=== PATIENT | male | born 1980 | race Caucasian/White ===

== ENCOUNTER 2018-08-18 09:19 | Observation (INO) | payer SELFPAY ==
[2018-08-18 09:25] VITALS: BP 131/94; PULSE 76; RESP 20; TEMP 36.7; O2SAT 99
[2018-08-18 09:51] LABS: Abs Immature Grans 0.04 k/cumm (0.0-0.09); Absolute Basophil Count 0.02 k/cumm (0.0-0.2); Absolute Eosinophil Count 0.08 k/cumm (0.0-0.7); Absolute Monocyte Count 0.88 k/cumm (0.11-0.7); Absolute Neutrophil Count 8.11 k/cumm (1.2-6.7); Basophils % 0.2; Eosinophils % 0.7; HCT 49.6 % (40.0-50.0); Immature Grans % 0.4; Lymphocytes % 17.2; Mean Corp. HGB Concentration 34.3 g/dL (32.0-36.0); Mean Corpuscular Hemoglobin 31.9 pg (27.0-33.0); Mean Corpuscular Volume 93.1 fL (80-95); Mean Platelet Volume 10.2 fL (8.0-11.0); Neutrophils % 73.5; Platelet Count 259 x1000/uL (130-400); RBC 5.33 m/cumm (4.50-6.00); RBC Distribution Width 13.4 % (11.8-14.1); White Blood Cell Count 11.04 k/cumm (4.4-10.8)
--- NOTE | 2018-08-18 09:59 | ED.GENADUL_ITS ---
Discharge Plan Disposition Patient Disposition: [facility] INPATIENT Condition: Stable Discharge Details Chief Complaint: Abd Prob Clinical Impression: Small bowel obstruction, History of alcohol abuse Admit Date/Time: 08/18/18 11:10 Admit Provider: Deborah Hunter Attending Provider: Deborah Hunter Primary Care Provider: Alhaji Raymundo ED Provider: Jodee Ling Medical Decision Making 38-year-old male with a history of GERD and Hirschsprung's disease with multiple abdominal surgeries as an , and abdominal surgery for appendicitis in 2013 and was determined that his appendix had been removed as an who presents with abdominal pain and vomiting since yesterday morning. Last bowel movement yesterday morning. Has not been passing gas since then. Denies fever or urinary symptoms. He admits to some relief of pain with urinating. Patient is a daily alcohol drinker approximately 6 beers daily since his 20s. Vitals within normal limits. Patient appears nontoxic. He has diffuse abdominal tenderness, worse in the upper abdomen. Hypoactive bowel sounds. Positive guarding. Differential diagnosis includes acute pancreatitis, acute cholecystitis, small bowel obstruction. Will place an IV, bolus IV fluids, labs, urinalysis and CT abdomen and pelvis. 1045 --labs and imaging reviewed. White blood cell count 11. Troponin negative. Lipase within normal limits. CT abdomen and pelvis notes dilated loops of small bowel which may be obstructing. Gallbladder and pancreas within normal limits. There is bladder wall thickening. 1100 --results discussed with surgery. Patient has a significantly tender exam, hypoactive bowel sounds, and not passing gas since yesterday. Will admit patient for serial abdominal exams. Would like NG tube. Patient is agreeable with plan. Patient is a daily alcohol drinker. Will need to be placed on CIWA protocol on the floor. Medical Records Medical records reviewed: Yes I reviewed the patient's medical records. Lab Data Lab results reviewed: Yes I reviewed the patient's lab results. Laboratory Tests Range/Units 08/18/18 08/18/18 09:35 09:35 WBC (4.4-10.8) k/cumm 11.04 H RBC (4.50-6.00) m/cumm 5.33 Hgb (13.5-17.5) g/dL 17.0 Hct (40.0-50.0) % 49.6 MCV (80-95) fL 93.1 MCH (27.0-33.0) pg 31.9 MCHC (32.0-36.0) g/dL 34.3 RDW (11.8-14.1) % 13.4 Plt Count (130-400) x1000/uL 259 MPV (8.0-11.0) fL 10.2 Immature Gran % 0.4 Neutrophils % 73.5 Lymphocytes % 17.2 Monocytes % 8.0 Eosinophils % 0.7 Basophils % 0.2 Absolute Neutrophils (1.2-6.7) k/cumm 8.11 H Absolute Lymphocytes (1.2-3.4) k/cumm 1.90 Absolute Monocytes (0.11-0.7) k/cumm 0.88 H Absolute Eosinophils (0.0-0.7) k/cumm 0.08 Absolute Basophils (0.0-0.2) k/cumm 0.02 Sodium (136-145) mmol/L 140 Potassium (3.5-5.1) mmol/L 3.9 Chloride (98-107) mmol/L 99 Carbon Dioxide (21.0-32.0) mmol/L 30.2 Anion Gap (3-11) mmol/L 10.8 BUN (7-18) mg/dL 13 Creatinine (0.70-1.30) mg/dL 0.98 Estimated GFR/1.73 m2 (mL/min/1.73m2) >= 60.00 Glucose (70-100) mg/dL 115 H Calcium (8.5-10.1) mg/dL 9.6 Magnesium (1.8-2.4) mg/dL 2.3 Total Bilirubin (0.2-1.0) mg/dL 0.4 Conjugated Bilirubin (0.00-0.20) mg/dL 0.11 AST (15-37) U/L 17 ALT (12-78) U/L 40 Alkaline Phosphatase (46-116) U/L 76 Troponin I (0.00-0.06) ng/mL < 0.02 Total Protein (6.4-8.2) g/dL 8.4 H Albumin (3.4-5.0) g/dL 4.2 Lipase (73-393) U/L 96 HPI General Mode of arrival: ambulatory . Date/Time Provider Initiated Documentation: 08/18/18 09:58 . Limitations to Documentation: no limitations . Information obtained by: patient . HPI Narrative: Patient is a 38-year-old male w/ a h/o multiple abdominal surgeries as an due to Hirschsprung's disease as well as abdominal surgery for a diagnosis of appendicitis in 2013 and was found that his appendix had been removed as an infant who presents with abdomi nal pain and vomiting since yesterday. Patient describes his abdominal pain as intermittent, sharp, worse in the upper abdomen, but also radiates from the lower abdomen up to his upper abdomen. He denies aggravating factors. He admits to some relief of pain with urination. He denies any dysuria, hematuria or frequency. He states he vomited multiple times last night between 7 PM and 4 AM. States it was clear and then bile. He denies any hematemesis. Patient states his last bowel movement was yesterday morning. He states since then he has been unable to pass gas and no further bowel movements. He denies any melena or hematochezia. He denies fever, recent travel, recent surgeries, recent antibiotics or sick contacts. Related Data Home Medications Medication Instructions Recorded Confirmed omeprazole 20 mg PO DAILY 08/18/18 08/18/18 Allergies Allergy/AdvReac Type Severity Reaction Status Date / Time Penicillins Allergy Hives Unverified 08/18/18 09:29 General Stated Complaint: Abd Prob JAMIR: 3 Review of Systems Review of Systems All systems reviewed & are unremarkable except as noted in HPI and below Constitutional Reports as per HPI, Denies chills and Denies fever(s) Eyes Denies blurry vision ENT Denies dizziness, Denies sore throat and Denies throat swelling Cardiovascular Denies chest pain and Denies dyspnea Respiratory Denies cough and Denies dyspnea Gastrointestinal Reports abdominal pain, Denies diarrhea and Reports vomiting Genitourinary Denies hematuria and Denies dysuria Musculoskeletal Denies back pain and Denies numbness Integumentary/Breasts Denies lesions and Denies rash Neurologic Denies dizziness, Denies focal weakness and Denies numbness Allergic/Immunologic Denies throat swelling [facility] Medical History Hirschsprung's disease (Acute) GERD (gastroesophageal reflux disease) (Chronic) Surgical History H/O exploratory laparotomy (Acute) History of bowel resection (Acute) History of appendectomy (Chronic) Social History Smoking/Tobacco Use Status: Current every day Alcohol Intake: current Alcohol Intake frequency: 3 or more drinks per day Drug use: Occasionally Substance use type: marijuana Do you feel safe at home: Yes Do you feel safe in your relationship?: Yes Exam Const General: cooperative, healthy appearing and no acute distress HENMT Head: normal to inspection Face and sinus: normal facial exam Eyes General: appearance normal, both eyes and all related structures Pupils: PERRL EOM: EOM intact bilaterally Neck Neck: normal visual inspection and No submandibular swelling Lymphatic: no lymphadenopathy noted Chest Chest: normal inspection of the chest and no tenderness Resp Effort & Inspection: normal respiratory effort and able to speak in complete sentences Auscultation: clear to auscultation bilaterally Cardio Rate: regular rate Rhythm: regular rhythm GI Inspection: normal to inspection Palpation: soft, not firm, guarding in the LUQ and in the RUQ, not rigid and tender (diffuse, worse in upper abdomen) Auscultation: hypoactive bowel sounds Male General Exam: Yes normal external exam Skin General skin exam: no rashes or lesions noted Neuro General: alert, awake and oriented x3 Cognition: normal cognition Speech: speech normal Motor: muscle tone normal throughout Sensory Exam: no sensory deficits noted Extrem General: normal to inspection, full ROM and no edema Psych Appearance: grossly normal Mental Status: mental status grossly normal Speech and Movement: speech and movement normal Affect: normal affect Course Vital Signs Temperature 98.1 F 08/18/18 09:25 Pulse 76 08/18/18 09:25 Respiratory Rate 20 08/18/18 09:25 Blood Pressure 131/94 H 08/18/18 09:25 Pulse Oximetry 99 08/18/18 09:25 Temperature 98.1 F 08/18/18 09:25 Temperature Source Temporal Artery Scan 08/18/18 09:25 Pulse 76 08/18/18 09:25 Respiratory Rate 20 08/18/18 09:25 Respiratory Effort Non-Labored 08/18/18 09:25 Blood Pressure 131/94 H 08/18/18 09:25 Blood Pressure Position Sitting 08/18/18 09:25 Pulse Oximetry 99 08/18/18 09:25 Oxygen Delivery Method Room Air 08/18/18 09:25 Oxygen Flow Rate 0 08/18/18 09:25 Pain Level 8 08/18/18 09:25 Lab/Test Results Lab/Test Results: Laboratory Tests Range/Units 08/18/18 09:35 WBC (4.4-10.8) k/cumm 11.04 H RBC (4.50-6.00) m/cumm 5.33 Hgb (13.5-17.5) g/dL 17.0 Hct (40.0-50.0) % 49.6 MCV (80-95) fL 93.1 MCH (27.0-33.0) pg 31.9 MCHC (32.0-36.0) g/dL 34.3 RDW (11.8-14.1) % 13.4 Plt Count (130-400) x1000/uL 259 MPV (8.0-11.0) fL 10.2 Immature Gran % 0.4 Neutrophils % 73.5 Lymphocytes % 17.2 Monocytes % 8.0 Eosinophils % 0.7 Basophils % 0.2 Absolute Neutrophils (1.2-6.7) k/cumm 8.11 H Absolute Lymphocytes (1.2-3.4) k/cumm 1.90 Absolute Monocytes (0.11-0.7) k/cumm 0.88 H Absolute Eosinophils (0.0-0.7) k/cumm 0.08 Absolute Basophils (0.0-0.2) k/cumm 0.02
--- NOTE | 2018-08-18 10:03 | DI.CT_ITS ---
SYMPTOMS/DIAGNOSIS: UPPER ABD PAIN, H/O ETOH, ? PANCREATITIS VS CHOLECYSTITIS VS SBO CT SCAN OF THE ABDOMEN AND PELVIS: CT scan of the abdomen and pelvis was performed following the uneventful administration of intravenous contrast material. Mild dependent atelectatic changes are seen in the lung bases. The liver is normal in size. No hepatic mass is seen. The portal, superior mesenteric and splenic veins are patent. The gallbladder is negative. There is no biliary ductal dilatation. The pancreas and peripancreatic soft tissues are unremarkable as are the spleen and adrenal glands. The kidneys show normal and symmetric enhancement. No evidence of a solid renal mass or obstruction. There is mild apparent diffuse thickening of the wall of the urinary bladder. This may be due to underdistention. Cystitis can not be excluded. The reproductive organs are unremarkable. The abdominal aorta is of normal caliber with mild atherosclerosis. No significant abdominal or pelvic adenopathy or pneumoperitoneum is seen. There is a trace amount of fluid in the pelvis and right colon. This is nonspecific. No focal fluid collection is seen to suggest an abscess. Mildly dilated loops of small bowel are seen in the central abdomen with air fluid levels. This may represent an ileus or obstruction. The distal small bowel is of normal caliber. The colon is unremarkable. The appendix is not visualized but no right lower quadrant inflammatory changes are seen to suggest an acute appendicitis. Degenerative changes are seen in the spine particularly at the L 5 - S 1 disc space. IMPRESSION: 1. Mildly dilated loops of small bowel in the central abdomen. This may represent an ileus vs a small bowel obstruction. 2. Mild apparent diffuse thickening of the wall of the urinary bladder. This may be due to underdistention vs cystitis. 3. Normal CT appearance of the pancreas and gallbladder. No biliary ductal dilatation. 4. Trace amount of free fluid in the right pelvis. This is nonspecific. The findings were discussed with the emergency department on the date of the examination.
[2018-08-18 10:08] LABS: ALT 40 U/L (12-78); AST 17 U/L (15-37); Albumin 4.2 g/dL (3.4-5.0); Alkaline Phosphatase 76 U/L (46-116); Anion Gap 10.8 mmol/L (3-11); BUN 13 mg/dL (7-18); Bilirubin, Direct 0.11 mg/dL (0.00-0.20); Bilirubin, Total 0.4 mg/dL (0.2-1.0); CO2 30.2 mmol/L (21.0-32.0); CREATININE 0.98 mg/dL (0.70-1.30); Calcium 9.6 mg/dL (8.5-10.1); Chloride 99 mmol/L (98-107); Glucose 115 mg/dL (70-100); Lipase 96 U/L (73-393); Magnesium 2.3 mg/dL (1.8-2.4); Potassium 3.9 mmol/L (3.5-5.1); Sodium 140 mmol/L (136-145); Total Protein 8.4 g/dL (6.4-8.2)
[2018-08-18 10:16] LABS: Troponin I < 0.02 ng/mL (0.00-0.06)
[2018-08-18] MEDS: FAMOTIDINE 20 MG/50 ML BAG 200 MG IVPB (10:25)
[2018-08-18] MEDS: Normal Saline 1,000 ML 1000 ML IV ×2 (10:25→11:36)
[2018-08-18] MEDS: Omnipaque 350 MG/ML 100 ML BTL IJ (10:30)
[2018-08-18] MEDS: MORPHine 10 MG/ML VIAL 4 MG IVP (11:36)
--- NOTE | 2018-08-18 11:37 | NUR.NOTE ---
Nursing Note: NG placed attempt [address] Cabello. Patient has an hypersensitive gag reflex and did not tolerate the tube, required hurricane spray to back of throat and viscous lidocaine up nares. Pt tolerating it at this time.
--- NOTE | 2018-08-18 12:00 | PDOC.ERCMPRO ---
Care Management Progress Note - Kelvin is being admitted by Dr. Hunter for Small Bowel Obstruction. This CM met with Kelvin and his Analia. They live in [place] with their two children. Both work full-time. Kelvin works for [employer]. Kelvin does not have any advance directives and does not have any health insurance. His PCP is Dr. Raymundo. Kelvin admits to drinking six beers every day. At this time, no indication for services or DME at discharge. Care Management to continue to assess throughout hospital stay.
[2018-08-18 12:05] VITALS: BP 131/94; PULSE 76; RESP 20; TEMP 36.8; O2SAT 99
--- NOTE | 2018-08-18 12:06 | CMPROGNOTE_ITS ---
Care Management Progress Note - Kelvin is being admitted by Dr. Hunter for Small Bowel Obstruction. This CM met with Kelvin and his Analia. They live in [place] with their two children. Both work full-time. Kelvin works for [employer]. Kelvin does not have any advance directives and does not have any health insurance. His PCP is Dr. Raymundo. Kelvin admits to drinking six beers every day. At this time, no indication for services or DME at discharge. Care Management to continue to assess throughout hospital stay.
[2018-08-18 12:26] VITALS: BP 150/94; PULSE 70; RESP 18; TEMP 37.1; O2SAT 97
[2018-08-18 12:54] LABS: Bilirubin Negative (Negative); Blood Negative (Negative); Clarity Clear; Glucose Negative (Negative); Ketones Negative (Negative); Leukocyte Esterase Negative (Negative); Nitrite Negative (Negative); Urobilinogen 0.2 EU/dL (Up TO 0.2)
[2018-08-18 13:07] LABS: Bacteria Rare HPF (Negative); C & S Indicated? No; Casts Negative LPF (Negative); Crystals Negative HPF (Negative); Epithelial Cells Rare HPF (Negative); Mucus Trace (Negative); RBC 0-2 (0-2); WBC 0-2 HPF (0-5)
--- NOTE | 2018-08-18 14:20 | HPE_ITS ---
Date of service: 08/18/18 Time of Service: 14:20 Assessment and Plan (1) Bowel obstruction: Current visit: Yes Status: Acute 38 y/o male with nausea, vomiting, and abdominal pain. He is not passing flatus. Last BM [address] shows mildly dilated small bowel loops. Differential diagnosis would include resolving gastroenteritis or ileus. Will manage conservatively with bowel rest, IVF, NG decompression, and follow-up AXR in the am. OK for ice chips. Further recommendations pending clinical course. CIWA assessment ordered for h/o daily ETOH use. All questions answered. Patient and agreeable with plans. History of Present Illness Chief Complaint: Abdominal pain Narrative: 38 y/o male seen with at bedside. Discussed patient with Dr. Ling (ED) earlier this morning. Patient states that he developed mid-abdominal/epigastric pain yesterday morning. The pain was intermittent and worsened later in the day. He also subsequently developed nausea and vomiting. He had eaten lunch and vomited his lunch several hours later. Last emesis was around 0400 this morning. He last had a BM yesterday morning which was 2 small, formed stools full of sunflower seeds. He states that normally his stool is looser and he has 2-3 BMs/day. He is not passing flatus. He denies fevers or chills. He denies melena, hematochezia, dysuria, or hematuria. He had a stomach bug last week with diarrhea up to 20x/day which appeared to have resolved. He notes a similar episode of pain in 2012. He was taken to surgery for an appendectomy but it was found that his appendix had already been removed. His describes what sounds like a lysis of adhesions performed at that time. He has a h/o Hirschsprung's disease and had bowel surgery at 6 months of age. He had a blockage which required return to surgery at age 3. He denies any other abdominal surgeries besdies those listed above. CT abd/pelvis reviewed. Report noted. Findings of mildly dilated small bowel consistent with ileus vs. SBO. Labs noted. Review of Systems Constitutional Reports system reviewed and no additional complaints, except as docu, Denies chills and Denies fever(s) Gastrointestinal Reports abdominal pain, Denies hematochezia, Reports heartburn, Reports nausea, Reports vomiting and Denies hematemesis Genitourinary Denies hematuria, Denies difficulty urinating and Denies dysuria PFSH Medical History Hirschsprung's disease (Acute) GERD (gastroesophageal reflux disease) (Chronic) Surgical History H/O exploratory laparotomy (Acute) History of bowel resection (Acute) History of appendectomy (Chronic) Social History Smoking/Tobacco Use Status: Current every day Tobacco Type: cigars Alcohol Intake: current Alcohol Intake frequency: 3 or more drinks per day Drug use: Occasionally Substance use type: marijuana Do you feel safe at home: Yes Do you feel safe in your relationship?: Yes Meds Home Medications Medication Instructions Recorded Confirmed Type omeprazole 20 mg PO DAILY 08/18/18 08/18/18 History Allergies Allergy/AdvReac Type Severity Reaction Status Date / Time Penicillins Allergy Hives Unverified 08/18/18 09:29 Exam Const General: cooperative and no acute distress Nutritional Appearance: average body habitus and well nourished Orientation: alert and oriented x3 HENMT Head: normocephalic and atraumatic General nose exam: other (NG in right nares - clear, mucous drainage) Eyes Sclera: sclerae normal Neck Neck: no JVD Resp Effort & Inspection: normal respiratory effort and able to speak in complete sentences Cardio Jugular venous pressure: no JVD Rate: regular rate Rhythm: regular rhythm GI Inspection: non-distended and scar (well-healed, transverse lower abdomen) Palpation: soft, not firm, no guarding, not rigid and tender (mildly tender mid-abdomen) Auscultation: hypoactive bowel sounds Skin General skin exam: no rashes or lesions noted and no jaundice Neuro General: alert and oriented x3 Speech: speech normal Results Imaging Abdomen CT scan report/results: report reviewed and image reviewed CT scan - pelvis: report reviewed and image reviewed Imaging Studies: Patient Name: Davide WHITAKER #: [id number]: ER Ordering Provider: Jodee Ling DOAccount #: [id number]: REG ER Primary Care Provider: Alhaji Raymundo Date of Exam: 08/18/18Sex: Reba : 1980Age: 38 Exam(s) a CT:CT abdomen & pelvis w SYMPTOMS/DIAGNOSIS: UPPER ABD PAIN, H/O ETOH, ? PANCREATITIS VS CHOLECYSTITIS VS SBO CT SCAN OF THE ABDOMEN AND PELVIS: CT scan of the abdomen and pelvis was performed following the uneventful administration of intravenous contrast material. Mild dependent atelectatic changes are seen in the lung bases. The liver is normal in size. No hepatic mass is seen. The portal, superior mesenteric and splenic veins are patent. The gallbladder is negative. There is no biliary ductal dilatation. The pancreas and peripancreatic soft tissues are unremarkable as are the spleen and adrenal glands. The kidneys show normal and symmetric enhancement. No evidence of a solid renal mass or obstruction. There is mild apparent diffuse thickening of the wall of the urinary bladder. This may be due to underdistention. Cystitis can not be excluded. The reproductive organs are unremarkable. The abdominal aorta is of normal caliber with mild atherosclerosis. No significant abdominal or pelvic adenopathy or pneumoperitoneum is seen. There is a trace amount of fluid in the pelvis and right colon. This is nonspecific. No focal fluid collection is seen to suggest an abscess. Mildly dilated loops of small bowel are seen in the central abdomen with air fluid levels. This may represent an ileus or obstruction. The distal small bowel is of normal caliber. The colon is unremarkable. The appendix is not visualized but no right lower quadrant inflammatory changes are seen to suggest an acute appendicitis. Degenerative changes are seen in the spine particularly at the L 5 - S 1 disc space. IMPRESSION: 1. Mildly dilated loops of small bowel in the central abdomen. This may represent an ileus vs a small bowel obstruction. 2. Mild apparent diffuse thickening of the wall of the urinary bladder. This may be due to underdistention vs cystitis. 3. Normal CT appearance of the pancreas and gallbladder. No biliary ductal dilatation. 4. Trace amount of free fluid in the right pelvis. This is nonspecific. The findings were discussed with the emergency department on the date of the examination. [id number]: Total DLP = 0.00 mGy-cm Ordered By: Jodee Ling DO CC: Dictated By: Alhaji Ferreira M.D. 08/18/18 1048 Transcribed By: Jennifer Mccormack 08/18/18 1119 This is privileged, confidential information intended only for the provider na med. Any use or distribution by any person other than this provider is strictly prohibited. If you receive this report in error, please notify us immediately at [phone] and return the original report to us at the address above. Thank- you. Labs : 08/18/18 09:35 08/18/18 09:35 Laboratory Results - last 24 hr 08/18/18 08/18/18 08/18/18 09:35 09:35 12:40 WBC 11.04 H RBC 5.33 Hgb 17.0 Hct 49.6 MCV 93.1 MCH 31.9 MCHC 34.3 RDW 13.4 Plt Count 259 MPV 10.2 Immature Gran % 0.4 Neutrophils % 73.5 Lymphocytes % 17.2 Monocytes % 8.0 Eosinophils % 0.7 Basophils % 0.2 Absolute Neutrophils 8.11 H Absolute Lymphocytes 1.90 Absolute Monocytes 0.88 H Absolute Eosinophils 0.08 Absolute Basophils 0.02 Sodium 140 Potassium 3.9 Chloride 99 Carbon Dioxide 30.2 Anion Gap 10.8 BUN 13 Creatinine 0.98 Estimated GFR/1.73 m2 >= 60.00 Glucose 115 H Calcium 9.6 Magnesium 2.3 Total Bilirubin 0.4 Conjugated Bilirubin 0.11 AST 17 ALT 40 Alkaline Phosphatase 76 Troponin I < 0.02 Total Protein 8.4 H Albumin 4.2 Lipase 96 Urine Color Yellow Urine Clarity Clear Urine pH 7.0 Ur Specific [place] 1.010 Urine Protein 30 H Urine Ketones Negative Urine Blood Negative Urine Nitrite Negative Urine Bilirubin Negative Urine Urobilinogen 0.2 Ur Leukocyte Esterase Negative Urine RBC 0-2 Urine WBC 0-2 Ur Epithelial Cells Rare Urine Crystals Negative Urine Bacteria Rare Urine Casts Negative Urine Mucus Trace Urine Other Ur Culture Indicated? No Urine Glucose Negative Last Vital Signs Temp 37.1 C 08/18/18 12:26 Pulse 70 08/18/18 12:26 Resp 18 08/18/18 12:26 BP 150/94 H 08/18/18 12:26 Pulse Ox 97 08/18/18 12:26
[2018-08-18 14:45] VITALS: BP 130/74; PULSE 62; RESP 19; TEMP 37.1; O2SAT 96
[2018-08-18] MEDS: Normal Saline 1,000 ML 125 ML IV (16:11)
[2018-08-18] MEDS: Ketorolac 30 MG/ML VIAL IVP (19:49)
[2018-08-18] MEDS: Normal Saline Flush 10 ML SYR IVP (19:50)
[2018-08-18 23:01] VITALS: BP 120/75; PULSE 70; RESP 18; TEMP 37.2; O2SAT 94
[2018-08-19] VITALS: BP 115/76; PULSE 62; RESP 16; TEMP 37.4; O2SAT 96
[2018-08-19] MEDS: Normal Saline 1,000 ML 125 ML IV ×3 (00:19→16:00)
[2018-08-19 03:59] VITALS: BP 121/74; PULSE 87; RESP 16; TEMP 37.1; O2SAT 98
--- NOTE | 2018-08-19 08:03 | PDOC.CMIN ---
- If Service Date Differs Date of service: 08/19/18 Time of Service: 08:03 Care Management Initial Assess REASON FOR HOSPITALIZATION:: SBO PAST MEDICAL HISTORY/PAST SURGICAL HISTORY:: Hirschsprung's disease (Acute). GERD (gastroesophageal reflux disease) (Chronic. H/O exploratory laparotomy (Acute). History of bowel resection (Acute). History of appendectomy (Chronic) PREVIOUS FUNCTIONAL STATUS/SOCIAL/FAMILY SUPPORTS:: Kelvin resides with his Analia and two children in [place]. He works for [employer]. He is independent at baseline, drives, and manages ADL's CURRENT FUNCTIONAL STATUS:: Currently Kelvin is sitting up in bed, his is in the room with him this morning. ADVANCE DIRECTIVES:: None on file Has patient been provided with information about the portal?: Yes Did the patient sign up for the portal?: No CODE STATUS:: Full Code INSURANCE COVERAGE / FINANCIAL ISSUES:: Self Pay CURRENT HOME/COMMUNITY SERVICES/EQUIPMENT:: Currently Kelvin has no services or medical equipment in the community. PRIMARY CARE PHYSICIAN:: Alhaji Raymundo POTENTIAL DISCHARGE NEEDS:: F/U appointment with Dr. Hunter PATIENT/FAMILY EDUCATION NEEDS:: Review DC instructions, any limitations, and ongoing DC planning discussion. discuss 'Ask Me Three' ANTICIPATED BARRIERS TO DISCHARGE:: None identified at this time. TRANSPORTATION:: Via private vehicle with PLAN:: Kelvin will return home with no anticipated services once medically cleared. He will f/U with Dr. Hunter and plan of care as prescribed. family to transport.
--- NOTE | 2018-08-19 08:10 | INITIAL_ITS ---
- If Service Date Differs Date of service: 08/19/18 Time of Service: 08:03 Care Management Initial Assess REASON FOR HOSPITALIZATION:: SBO PAST MEDICAL HISTORY/PAST SURGICAL HISTORY:: Hirschsprung's disease (Acute). GERD (gastroesophageal reflux disease) (Chronic. H/O exploratory laparotomy (Acute). History of bowel resection (Acute). History of appendectomy (Chronic) PREVIOUS FUNCTIONAL STATUS/SOCIAL/FAMILY SUPPORTS:: Kelvin resides with his Analia and two children in [place]. He works for [employer]. He is independent at baseline, drives, and manages ADL's CURRENT FUNCTIONAL STATUS:: Currently Kelvin is sitting up in bed, his is in the room with him this morning. ADVANCE DIRECTIVES:: None on file Has patient been provided with information about the portal?: Yes Did the patient sign up for the portal?: No CODE STATUS:: Full Code INSURANCE COVERAGE / FINANCIAL ISSUES:: Self Pay CURRENT HOME/COMMUNITY SERVICES/EQUIPMENT:: Currently Kelvin has no services or medical equipment in the community. PRIMARY CARE PHYSICIAN:: Alhaji Raymundo POTENTIAL DISCHARGE NEEDS:: F/U appointment with Dr. Hunter PATIENT/FAMILY EDUCATION NEEDS:: Review DC instructions, any limitations, and ongoing DC planning discussion. discuss 'Ask Me Three' ANTICIPATED BARRIERS TO DISCHARGE:: None identified at this time. TRANSPORTATION:: Via private vehicle with PLAN:: Kelvin will return home with no anticipated services once medically cleared. He will f/U with Dr. Hunter and plan of care as prescribed. family to transport.
[2018-08-19 08:22] VITALS: BP 126/83; PULSE 61; RESP 20; TEMP 36.8; O2SAT 95
--- NOTE | 2018-08-19 08:45 | DI.RAD_ITS ---
SYMPTOM/DIAGNOSIS: ABD PAIN, ILEUS VS SMALL BOWEL OBSTRUCTION ABDOMEN: Two views were obtained. There is an NG tube in position overlying the gastric fundus. There is moderate small bowel dilatation with some gas and fecal material in the colon, the findings are consistent with a partial small bowel obstruction. Appropriate follow up studies requested.
--- NOTE | 2018-08-19 10:41 | DI.VRAD_ITS ---
EXAM: XR Abdomen, 2 Views EXAM DATE/TIME: 08/19/2018 12:01 AM CLINICAL HISTORY: 38 years old, male; Pain; Abdominal pain; Generalized; Patient HX: Abdominal pain, ileus vs small bowel obstruction. TECHNIQUE: Imaging protocol: Frontal view of the abdomen/pelvis with upright view of the abdomen. COMPARISON: CT ABDOMEN PELVIS W 08/18/2018 10:23 AM FINDINGS: Tubes, catheters and devices: Intervally placed enteric tube with tip in gastric fundus. Lower thorax: Normal heart. Clear lung bases. Gastrointestinal tract: Distended loops of small bowel measure up to 5.7 cm. Gas is noted within the colon. Intraperitoneal space: No free air. Bones/joints: Mild scoliosis. No destructive bony lesion. IMPRESSION: 1. Dilated small bowel loops, likely partial obstruction versus ileus. 2. Intervally placed enteric tube. Dictated and Authenticated by: Felice Oneil MD. Ordering:CHONG Cabrera MD
--- NOTE | 2018-08-19 12:13 | W.PM.PROGNOT ---
Date of Service Date of service: 08/19/18 Time of Service: 12:13 Assessment and Plan (1) Bowel obstruction: Current visit: Yes Status: Acute 38 y/o male with nausea, vomiting, and abdominal pain. Findings on CT and follow-up AXR consistent with partial bowel obstruction vs. ileus. Clinically he is much improved today. Abdominal pain has resolved and he is passing flatus. NG has had only minimal output. Will d/c NG and start clears. If patient is tolerating clears, then will advance diet. Anticipate d/c in am if tolerating po well. All questions answered. Patient and appeared to understand and agree with the plans as outlined above. Qualifiers: Intestinal obstruction extent: partial Subjective Interval history since last seen: Patient seen with at bedside. Patient is feeling better. He denies abdominal pain at rest. He notes only mild tenderness on palpation. No nausea or vomiting. NG was placed yesterday. There is only 150 cc clear, bile-tinged fluid in the canister. (+) flatus. No BM. AXR this am reviewed and report noted. [facility] notes dilated small bowel loops, likely partial obstruction vs. ileus. On my review, there does appear to be stool in the rectal vault. Exam Const General: cooperative, comfortable and no acute distress Nutritional Appearance: average body habitus Orientation: alert and oriented x3 [facility] Head: normocephalic and atraumatic General nose exam: other (NG in right nares - clear, mucous drainage) Eyes Sclera: sclerae normal Neck Neck: no JVD Resp Effort & Inspection: normal respiratory effort and able to speak in complete sentences GI Inspection: non-distended Palpation: soft, not firm, no guarding, not rigid and nontender Auscultation: normal bowel sounds Skin General skin exam: no rashes or lesions noted and no jaundice Neuro General: alert and oriented x3 Speech: speech normal Objective Objective Clinical Data: Abnormal lab results 08/18/18 Range/Units 12:40 Urine Protein 30 H (Negative) mg/dL Vital Signs Temperature 36.8 C 08/19/18 08:22 Temperature Source Tympanic 08/19/18 08:22 Pulse 61 08/19/18 08:22 Pulse Rhythm Regular 08/19/18 07:46 Respiratory Rate 20 08/19/18 08:22 Respiratory Effort Non-Labored 08/19/18 07:46 Respiratory Depth Normal 08/19/18 07:46 Respiratory Pattern Normal 08/18/18 12:26 Blood Pressure 126/83 08/19/18 08:22 Blood Pressure Position Sitting 08/18/18 09:25 Pulse Oximetry 95 08/19/18 08:22 Oxygen Delivery Method Room Air 08/19/18 08:22 Oxygen Flow Rate 0 08/19/18 08:22 Pain Level 0 08/19/18 03:59 Comment 08/18/18 12:26 Intake & Output 08/18/18 08/19/18 08/19/18 23:59 11:59 23:59 Intake Total 1010 / 1010 1947.7 / 1946.7 Output Total 350 / 350 Balance 660 / 660 1946. / 1946. Weight 86.183 kg Intake: IV 1010 / 1010 1946. / Output: Urine 350 / 350 Other: Urine Color Pale Yellow Straw Urine Appearance Clear Clear Urine Odor None Stool Size Small Stool Characteristics Soft Formed Brown Voiding Methods Urinal Laboratory Results WBC 11.04 k/cumm (4.4-10.8) H 08/18/18 09:35 RBC 5.33 m/cumm (4.50-6.00) 08/18/18 09:35 Hgb 17.0 g/dL (13.5-17.5) 08/18/18 09:35 Hct 49.6 % (40.0-50.0) 08/18/18 09:35 MCV 93.1 fL (80-95) 08/18/18 09:35 MCH 31.9 pg (27.0-33.0) 08/18/18 09:35 MCHC 34.3 g/dL (32.0-36.0) 08/18/18 09:35 RDW 13.4 % (11.8-14.1) 08/18/18 09:35 Plt Count 259 x1000/uL (130-400) 08/18/18 09:35 MPV 10.2 fL (8.0-11.0) 08/18/18 09:35 Immature Gran % 0.4 08/18/18 09:35 Neutrophils % 73.5 08/18/18 09:35 Lymphocytes % 17.2 08/18/18 09:35 Monocytes % 8.0 08/18/18 09:35 Eosinophils % 0.7 08/18/18 09:35 Basophils % 0.2 08/18/18 09:35 Absolute Neutrophils 8.11 k/cumm (1.2-6.7) H 08/18/18 09:35 Absolute Lymphocytes 1.90 k/cumm (1.2-3.4) 08/18/18 09:35 Absolute Monocytes 0.88 k/cumm (0.11-0.7) H 08/18/18 09:35 Absolute Eosinophils 0.08 k/cumm (0.0-0.7) 08/18/18 09:35 Absolute Basophils 0.02 k/cumm (0.0-0.2) 08/18/18 09:35 Sodium 140 mmol/L (136-145) 08/18/18 09:35 Potassium 3.9 mmol/L (3.5-5.1) 08/18/18 09:35 Chloride 99 mmol/L (98-107) 08/18/18 09:35 Carbon Dioxide 30.2 mmol/L (21.0-32.0) 08/18/18 09:35 Anion Gap 10.8 mmol/L (3-11) 08/18/18 09:35 BUN 13 mg/dL (7-18) 08/18/18 09:35 Creatinine 0.98 mg/dL (0.70-1.30) 08/18/18 09:35 Estimated GFR/1.73 m2 >= 60.00 (mL/min/1.73m2) 08/18/18 09:35 Glucose 115 mg/dL (70-100) H 08/18/18 09:35 Calcium 9.6 mg/dL (8.5-10.1) 08/18/18 09:35 Magnesium 2.3 mg/dL (1.8-2.4) 08/18/18 09:35 Total Bilirubin 0.4 mg/dL (0.2-1.0) 08/18/18 09:35 Conjugated Bilirubin 0.11 mg/dL (0.00-0.20) 08/18/18 09:35 AST 17 U/L (15-37) 08/18/18 09:35 ALT 40 U/L (12-78) 08/18/18 09:35 Alkaline Phosphatase 76 U/L (46-116) 08/18/18 09:35 Troponin I < 0.02 ng/mL (0.00-0.06) 08/18/18 09:35 Total Protein 8.4 g/dL (6.4-8.2) H 08/18/18 09:35 Albumin 4.2 g/dL (3.4-5.0) 08/18/18 09:35 Lipase 96 U/L (73-393) 08/18/18 09:35 Urine Color Yellow (Yellow) 08/18/18 12:40 Urine Clarity Clear 08/18/18 12:40 Urine pH 7.0 (5-8) 08/18/18 12:40 Ur Specific [place] 1.010 (1.005-1.025) 08/18/18 12:40 Urine Protein 30 mg/dL (Negative) H 08/18/18 12:40 Urine Ketones Negative mg/dL (Negative) 08/18/18 12:40 Urine Blood Negative (Negative) 08/18/18 12:40 Urine Nitrite Negative (Negative) 08/18/18 12:40 Urine Bilirubin Negative (Negative) 08/18/18 12:40 Urine Urobilinogen 0.2 EU/dL (Up TO 0.2) 08/18/18 12:40 Ur Leukocyte Esterase Negative (Negative) 08/18/18 12:40 Urine RBC 0-2 (0-2) 08/18/18 12:40 Urine WBC 0-2 HPF (0-5) 08/18/18 12:40 Ur Epithelial Cells Rare HPF (Negative) 08/18/18 12:40 Urine Crystals Negative HPF (Negative) 08/18/18 12:40 Urine Bacteria Rare HPF (Negative) 08/18/18 12:40 Urine Casts Negative LPF (Negative) 08/18/18 12:40 Urine Mucus Trace (Negative) 08/18/18 12:40 Urine Other (Negative) 08/18/18 12:40 Ur Culture Indicated? No 08/18/18 12:40 Urine Glucose Negative mg/dL (Negative) 08/18/18 12:40
--- NOTE | 2018-08-19 12:33 | PHARADMIT ---
Admission Pharmacy Clinical Review SBO, H/O Abdominal surguris as an , vomiting Code Status Full Code Current Weight wGT- 86.2 kg Renally Cleared and Narrow Therapeutic Index Meds CrCl~ 110 mL/min Meds-OK QTc Value / Action Taken na BP Control, Fever BP- 126/83 Tmax- 37.2C Electrolytes reviewed Na- 140 K+3.9 Mag-2.3 DVT Prophylaxis No (Surgery ??) Opiate Usage / Scheduled Bowel Regimen Ordered No No Plt/SCr for Heparin / Enoxaparin Plts-259 SCr-0.98 INR for Warfarin na H/H stable, WBC/Bands H&H-- 17.0/49.6 WBC- 11.04 Antibiotic appropriateness none Cultures and Sensitivities none Surgical ABX d/c within 24 hr na DM control / Insulin Dosing BG- 115 Heart Failure (Check EF%) (ANTOINETTE's, B-Block, Diuretics) none IV to PO Switch No Home Meds Reviewed Yes Home Meds Not Ordered Omeprazole Comments
[2018-08-19 15:00] VITALS: BP 120/79; PULSE 56; RESP 20; TEMP 36.9; O2SAT 97
[2018-08-19 19:49] VITALS: BP 134/68; PULSE 59; RESP 18; TEMP 37.1; O2SAT 97
[2018-08-20] MEDS: Normal Saline 1,000 ML 100 ML IV (01:30)
[2018-08-20 05:00] VITALS: BP 128/68; PULSE 62; RESP 18; TEMP 37; O2SAT 97
[2018-08-20 07:50] VITALS: BP 123/83; PULSE 59; RESP 18; TEMP 36.7; O2SAT 99
--- NOTE | 2018-08-20 07:52 | DSE_ITS ---
Date of service: 08/20/18 Time of Service: 07:50 DS: Diagnosis Discharge Diagnosis (1) Bowel obstruction: Status: Acute Discharge Plan Disposition Patient Disposition: HOME Condition: Stable Discharge Details Chief Complaint: Abd Prob Reason For Visit: SBO, H/O ABDOMINAL SURGERIES AN , VOMITIN Admit Date/Time: 08/18/18 11:10 Admit Provider: Deborah Hunter Attending Provider: Deborah Hunter Primary Care Provider: Alhaji Raymundo ED Provider: Jodee Ling Hospital Course Hospital Course: 38 y/o male admitted with nausea, vomiting, and abdominal pain. Patient has a h/o bowel resection including an appendectomy as an for Hirschsprung's disease. He also had two exploratory laparotomies. Imaging on admission suspicious for small bowel obstruction. Patient was managed conservatively on this admission with NG tube and bowel rest. NG had minimal output. Symptoms resolved. Once patient was passing flatus, his diet was resumed. He has been tolerating full liquids and has had several bowel movements. Diet advanced to regular on 08/20/18. Abdomen benign on exam. Nausea, vomiting, and abdominal pain resolved. Patient discharged 08/20/18 in good condition. He may advance his diet as tolerated at home. No activity restrictions. We discussed that bowel obstructions can recur. He is advised to return to the ED if he has similar symptoms in future. All questions answered. Patient was agreeable with discharge. Home Meds and New Rx's Prescriptions: Continued omeprazole 20 mg Capsule,Delayed Release(Dr/Ec) 20 mg PO DAILY RF: 0 Discharge Instructions Instructions: Bowel Obstruction (DC) Referrals: Socorro Espinosa MD [ [facility] STAFF PHYSICIAN] - (Follow-up as needed.) Activity:: Activity as Tolerated Equipment/Supplies:: No Equipment Needed Diet:: As Tolerated Discharge Orders Discharge Orders: Discharge Order (Routine); Ordered 08/20/18 Ordered By: Deborah Hunter Exam Const General: cooperative, no acute distress and well developed Nutritional Appearance: average body habitus and well nourished Orientation: alert and oriented x3 [facility] Head: normocephalic and atraumatic Eyes Sclera: sclerae normal Resp Effort & Inspection: normal respiratory effort and able to speak in complete sentences Cardio Jugular venous pressure: no JVD GI Inspection: non-distended Palpation: soft, not rigid and nontender Rectal Exam: No mass Neuro General: alert and oriented x3 Speech: speech normal DS: Data Vitals/I&O Vitals and I&O: Vital Signs Temperature 37.0 C 08/20/18 05:00 Temperature Source Tympanic 08/20/18 05:00 Pulse 62 08/20/18 05:00 Pulse Rhythm Regular 08/20/18 07:21 Respiratory Rate 18 08/20/18 05:00 Respiratory Effort Non-Labored 08/20/18 07:21 Respiratory Depth Normal 08/20/18 07:21 Respiratory Pattern Normal 08/20/18 07:21 Blood Pressure 128/68 08/20/18 05:00 Blood Pressure Position Sitting 08/18/18 09:25 Pulse Oximetry 97 08/20/18 05:00 Oxygen Delivery Method Room Air 08/20/18 05:00 Oxygen Flow Rate 0 08/20/18 05:00 Pain Level 0 08/20/18 05:00 Comment 08/18/18 12:26 Intake & Output 08/19/18 08/19/18 08/20/18 11:59 23:59 11:59 Intake Total 1999.917 / 5129.500 3129.583 / 5129.500 310.417 / 310.417 Output Total 825 / 1200 375 / 1200 600 / 600 Balance 1174.917 / 3929.500 2754.583 / 3929.500 -289.583 / -289.583 Intake: IV 1998.917 / 3689.500 1689.583 / 3689.500 310.417 / 310.417 Oral 1440 / 1440 Output: Gastric Drainage 200 / 200 Right Nare 200 / 200 Urine 825 / 1000 175 / 1000 600 / 600 Other: Urine Color Light Jamia Light Jamia Yellow Urine Appearance Clear Clear Clear Urine Odor Normal Normal Normal Comment Voids in urinal x3. Stool Size Moderate Stool Characteristics Hard Brown Voiding Methods Urinal Urinal Urinal PFSH Medical History Hirschsprung's disease (Acute) GERD (gastroesophageal reflux disease) (Chronic) Surgical History H/O exploratory laparotomy (Acute) History of bowel resection (Acute) History of appendectomy (Chronic) Social History Smoking/Tobacco Use Status: Current every day Tobacco Type: cigars Alcohol Intake: current Alcohol Intake frequency: 3 or more drinks per day Drug use: Occasionally Substance use type: marijuana Do you feel safe at home: Yes Do you feel safe in your relationship?: Yes
--- NOTE | 2018-08-20 08:19 | PDOC.CMDIS ---
- If Service Date Differs Date of service: 08/20/18 Time of Service: 08:19 LACE Index Scoring Tool - Questions: Length of Stay (in days): 2 Acuity (Admit via E.D.?): Yes E.D. Visits: 1 - Answers: Total Score: 6 Risk of Readmission: Low Risk Care Management Discharge Reason for Hospitalization: SBO Discharge Plan: Kelvin will return home today with no services. He will F/U with Dr. Hunter and plan of care as prescribed. His [facility] will transport him home. Patient/Family Education Needs: Review DC instructions, any limitations, and discuss 'Ask Me three'
== END 2018-08-20 08:58 | disposition home or self-care (01) ==
LOC: ER 12:12 → MS 08-19 07:32
PROVIDERS: Admitting Provider Surgery; Emergency Provider Physician Assistant; PCP Internal Medicine; Visit Provider Surgery
DX: K56.600 Partial intestinal obstruction, unspecified as to cause (principal); F10.10 Alcohol abuse, uncomplicated; Q43.1 Hirschsprung's disease; Z98.890 Other specified postprocedural states
CPT/HCPCS: 80053; 80076; 83690; 96360; 96361; 99222; 99232; 99238; 99285; 74019; 74177; 81003; 81015; 83735; 84484; 85025; 99284; G0378; J1885; J2270; J3490

== ENCOUNTER 2019-05-24 10:22 | Outpatient (REF) | payer SELFPAY ==
--- NOTE | 2019-05-24 09:15 | SKI_PTH ---
PATIENT: Kelvin Gómez LOC: [facility] U#:[id number] AGE/SX: 38/M ROOM: RE05/24/[address]: TOMAS Galeano : 1980 BED: DIS: 05/24/2019 SPEC #: [id number] RECD: 05/24/19 12:40 STATUS: BUTCH REShree #: [id number] KEYUR: 05/24/19 09:[address]: Milena Larry DEPT: Surgical Specimen RECD BY: Jayshree Gomes ENTERED: 05/24/19 12:47 SP TYPE: DANAY HUDSON DR: Alhaji Raymundo Tissues: 1 - SKIN BIOPSY(SHAVE/PUNCH) 2 - SKIN BIOPSY(SHAVE/PUNCH) Procedures: GROSS AND MICRO LEVEL 4 Comments: [id number]
== END 2019-05-24 10:42 ==
LOC: LBN 10:22
PROVIDERS: PCP Internal Medicine; Visit Provider Physical Therapy Assistant
DX: L72.8 Other follicular cysts of the skin and subcutaneous tissue (principal); L72.0 Epidermal cyst
CPT/HCPCS: 88305

== ENCOUNTER 2021-03-11 18:13 | Outpatient (REF) | payer SELFPAY | END 2021-03-11 18:14 | disposition home or self-care (01) | LOC: NCHCN 18:13 | PROVIDERS: PCP Internal Medicine; Visit Provider Internal Medicine | DX: L02.222 Furuncle of back [any part, except buttock and flank] (principal) | CPT/HCPCS: 87070; 87205 ==

== ENCOUNTER → 2023-05-02 18:31 | Outpatient (CLI) | payer SELFPAY ==
--- NOTE | 2023-05-02 | DI.RAD_ITS ---
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 TECHNIQUE: 2D digital imaging was performed. Five views. COMPARISON: No exams were available for comparison FINDINGS: BONES: No fracture or destructive lesion. Vertebral body heights are maintained. No facet hypertroph y identified. DISKS: Severe narrowing L5-S1 disc space. Small endplate osteophytes. Remaining intervertebral disc spaces are maintained. ALIGNMENT: Lumbar spinal alignment is within normal limits. SOFT TISSUE: Normal. IMPRESSION: Severe disc space narrowing at L5-S1. DATA REPOSITORY: RADIATION DOSE DELIVERED:
== END ==
PROVIDERS: PCP Internal Medicine; Visit Provider Nurse Practitioner Family
DX: M51.17 Intervertebral disc disorders with radiculopathy, lumbosacral region (principal)
CPT/HCPCS: 72110

== ENCOUNTER 2023-05-26 18:37 | Outpatient (REF) | payer BC, SELFPAY ==
[2023-05-26 19:00] LABS: Anion Gap 6.7 mmol/L (3-11); BUN 14 mg/dL (7-18); CO2 29.3 mmol/L (21.0-32.0); CREATININE 0.9 mg/dL (0.70-1.30); Calcium 9.4 mg/dL (8.5-10.1); Calculated LDL 117 mg/dL (<100); Chloride 102 mmol/L (98-107); Cholesterol 224 mg/dL (<200); Estimated GFR 110.73 (mL/min/1.73m2); Glucose 106 mg/dL (74-106); HDL Cholesterol 38 mg/dL (40-60); Potassium 4.3 mmol/L (3.5-5.1); Sodium 138 mmol/L (136-145); Triglyceride 348 mg/dL (<150)
== END 2023-05-26 18:38 | disposition home or self-care (01) ==
LOC: NCHCN 18:37
PROVIDERS: PCP Internal Medicine; Visit Provider Internal Medicine
DX: Z00.00 Encounter for general adult medical examination without abnormal findings (principal); Z13.220 Encounter for screening for lipoid disorders; Z13.228 Encounter for screening for other metabolic disorders
CPT/HCPCS: 80048; 80061

== ENCOUNTER → 2023-06-30 09:04 | Outpatient (CLI) | payer BC, SELFPAY ==
--- NOTE | 2023-06-30 | DI.MRI_ITS ---
Exam(s) MR LUMBAR SPINE WO EXAM: MR LUMBAR SPINE WO CLINICAL HISTORY: lumbar radiculopathy,m54.17. TECHNIQUE: Multiplanar multisequence MRI of the Lumbar spine was performed. COMPARISON: CR XR LUMBAR SPINE COMPLETE from 05/02/2023 FINDINGS: Bones: The last intervertebral disc space is designated the L5/S1 level for the numbering purpose of this ex amination. The vertebral body heights are well maintained. Alignment: Unremarkable. The marrow signal characteristics are unremarkable. Cord: The conus tip ends at the T12 level. It is of normal size and signal intensity. T12-L1: No focal disc herniation is present. No central spinal canal stenosis.No neural foraminal st enosis. L1-2: No focal disc herniation is present. No central spinal canal stenosis.No neural foraminal sten osis. L2-3: No focal disc herniation is present. No central spinal canal stenosis.No neural foraminal linnea nosis. L3-4: No focal disc herniation is present. No central spinal canal stenosis.No neural foraminal linnea nosis. L4-5: Large central and right paracentral disc herniation causing moderate central canal stenosis. T here is an additional disc fragment which is extruded inferior to the disc, posterior to the L5 verte bral body, right paracentral. No central spinal canal stenosis.No neural foraminal stenosis. L5-S1: Moderate to severe loss of disc height. Endplate osteophytes. Small left paracentral disc he rniation. This may contact the S1 nerve root. No central spinal canal stenosis.No neural foraminal stenosis. Mild facet degenerative changes. The visualized SI joints and sacrum are unremarkable. Soft tissues: The paraspinal soft tissues are unremarkable. IMPRESSION: Large disc herniation L4-5 with inferiorly extruded disc fragment causing moderate central canal sten osis. Small left paracentral disc herniation at L5-S1. DATA REPOSITORY:
== END ==
PROVIDERS: PCP Internal Medicine; Visit Provider Nurse Practitioner Family
DX: M48.02 Spinal stenosis, cervical region (principal)
CPT/HCPCS: 72148

== ENCOUNTER 2023-08-22 10:49 | Outpatient (REF) | payer BC, SELFPAY ==
[2023-08-22 18:58] LABS: Anion Gap 5.6 mmol/L (3-11); BUN 9 mg/dL (7-18); CO2 29.4 mmol/L (21.0-32.0); CREATININE 0.9 mg/dL (0.70-1.30); Calcium 9.5 mg/dL (8.5-10.1); Chloride 106 mmol/L (98-107); Cholesterol 224 mg/dL (<200); Estimated GFR 110.04 (mL/min/1.73m2); Glucose 92 mg/dL (74-106); HDL Cholesterol 40 mg/dL (40-60); Potassium 4.5 mmol/L (3.5-5.1); Sodium 141 mmol/L (136-145); Triglyceride 418 mg/dL (<150)
[2023-08-22 19:09] LABS: LDL CHOLESTEROL 90 mg/dL (<100)
== END 2023-08-22 10:50 | disposition home or self-care (01) ==
LOC: NCHCN 10:49
PROVIDERS: PCP Internal Medicine; Visit Provider Internal Medicine
DX: Z00.00 Encounter for general adult medical examination without abnormal findings (principal); Z13.220 Encounter for screening for lipoid disorders; Z13.228 Encounter for screening for other metabolic disorders
CPT/HCPCS: 80048; 80061; 83721

== ENCOUNTER 2024-06-29 18:13 | Outpatient (REF) | payer OTHER, SELFPAY ==
[2024-06-29 19:25] LABS: Glucose 90 mg/dL (74-106); TSH 2.91 uIU/mL (0.36-3.74)
[2024-06-29 19:39] LABS: Calculated LDL 126 mg/dL (<100); Cholesterol 223 mg/dL (<200); HDL Cholesterol 43 mg/dL (40-60); Triglyceride 270 mg/dL (<150)
== END 2024-06-29 18:14 | disposition home or self-care (01) ==
LOC: NCHCN 18:13
PROVIDERS: PCP Internal Medicine; Visit Provider Internal Medicine
DX: G56.03 Carpal tunnel syndrome, bilateral upper limbs (principal); E78.5 Hyperlipidemia, unspecified
CPT/HCPCS: 80061; 82947; 84443

== ENCOUNTER 2025-03-18 04:31 | Emergency (ER) | payer OTHER, SELFPAY ==
[2025-03-18 04:33] VITALS: BP 133/96; PULSE 87; RESP 16; TEMP 36.4; O2SAT 97
--- NOTE | 2025-03-18 04:45 | DI.CT_ITS ---
Exam(s) CT ABDOMEN PELVIS W EXAM: CT ABDOMEN PELVIS W CLINICAL HISTORY: vomiting, distension, suspect SBO TECHNIQUE: Imaging Protocol: Axial computed tomography images with coronal and sagittal reformatted images were created and reviewed. CONTRAST MATERIAL: Intravenous: Omnipaque 350 Contrast volume:75 mL Oral: No COMPARISON: CT CT ABDOMEN PELVIS W from 08/18/2018 FINDINGS: ABDOMEN: Lung Bases: No acute abnormality. Liver: Normal density. No measurable mass. Portal, Superior Mesenteric, and Splenic Veins: Unremarkable. Gallbladder and Biliary Tract: No radiodense calculus or dilation. Pancreas: Normal density, no abnormal calcifications or inflammatory process. Spleen: Normal. Adrenals: No masses seen. Kidneys: Normal size, contour and axis. No radiodense stones or obstructive uropathy. No masses seen. Abdominal Aorta: Abdominal portion non-dilated. Atherosclerotic calcification is present. Bowel: No obstruction or bowel wall thickening. There is no evidence of an appendicitis. There is a moderate amount of stool throughout the colon which can reflect constipation. Peritoneal Cavity: No ascites, collection or mesenteric inflammatory response. No free air. Lymph Nodes: Within normal limits. Bones: Within normal limits for the patient's age. Soft Tissues: Unremarkable. PELVIS: Bladder: There is diffuse thickening of the wall of the urinary bladder. This may be due to underdistention, but cystitis should also be considered in this patient. Reproductive Organs: Prostate gland looks mildly enlarged. Lymph Nodes: Within normal limits. Bones: Within normal limits for the patient's age. IMPRESSION: 1. There is no evidence of bowel obstruction. 2. Moderate amount of stool in the colon suggesting constipation. 3. There is diffuse thickening of the wall of the urinary bladder. This may be due to underdistention, cystitis cannot be entirely excluded. Please correlate clinically. 4. The preliminary [facility] report was reviewed. RADIATION DOSE DELIVERED: 508.99mGy.cm Total DLP DATA REPOSITORY: All CT scans at this facility are submitted to the National Radiology Data Registry (NRDR) Dose Index Registry (DIR) with the [employer] (ACR). RADIATION OPTIMIZATION: All CT scans at this facility use at least one of these dose optimization techniques: automated exposure control; mA and/or kV adjustment per patient size (includes targeted exams where dose is matched to clinical indication); or iterative reconstruction.
--- NOTE | 2025-03-18 04:49 | W.ED.GENAD ---
Discharge Plan Disposition Patient Disposition: Home Condition: Good Discharge Details Clinical Impression: Nausea & vomiting Primary Care Provider: Alhaji Raymundo ED Provider: Ian Cabello Home Meds and New Rx's Prescriptions: No Action omeprazole 20 mg Capsule,Delayed Release(Dr/Ec) 20 mg PO DAILY Discharge Instructions Instructions: Nausea and Vomiting, Adult ED Additional Instructions: At this time your workup is returned reassuring. There is no evidence of obstruction or ileus. There may be a viral irritation that caused her nausea and vomiting today. Please take the Zofran as needed for nausea. Please drink plenty fluids and stay well-hydrated. Stick with a soft or liquid diet for the next 48 to 72 hours. If you notice any worsening of your symptoms, or any new symptoms such as vomiting, diarrhea, fever, chills, shortness of breath, chest pain, numbness, weakness, or fainting , please return immediately to the emergency department for reevaluation. Please follow up with your primary care provider as soon as possible for reassessment and reevaluation. As always, it was a pleasure participating in your medical care today. Referrals: Alhaji Raymundo [Primary Care Provider, Medicine] HPI General Date/Time Provider Initiated Documentation: 03/18/25 04:37. 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 Pain began this evening around 1 to 2 AM, and at around 230 he did have an episode of vomiting. He has had cramping throughout the middle of his abdomen. It comes and goes. He did have some small constipated bowel movements earlier this past evening, and did have some flatus at that time as well. He denies any hematemesis. He denies fever or chills. No other complaints at this time. Related Data Home Medications ?Medication ?Instructions ?Recorded ?Confirmed omeprazole 20 mg capsule,delayed 20 mg PO DAILY 08/18/18 03/18/25 release Allergies Allergy/AdvReac Type Severity Reaction Status Date / Time Penicillins Allergy Hives Unverified 03/18/25 04:38 General Stated Complaint: Abd Prob JAMIR: 3 Exam Narrative Exam Narrative: 1.Const: Well-nourished, Well-developed, appearing stated age 2.Eyes: PERRL, no conjunctival injection, and symmetrical lids. 3.ENT: Atraumatic external nose and ears. Moist MM. Neck: Symmetric, trachea midline, No thyromegaly. 4.CVS: +S1/S2, Peripheral pulses 2+ and equal in all extremities. Brisk capillary refill in all extremities. 5.RESP: Unlabored respiratory effort. Clear to auscultation bilaterally. No wheezes rales or rhonchi 6.GI: Mildly distended, notable bowel sounds are present throughout. No tinkling, no focal significant pain. 7.MSK: Normocephalic/Atraumatic, Extremities w/o deformity or ttp No cyanosis or clubbing, Normal movement of all extremities 8.Skin: Warm, Dry. No rashes or lesions. 9.Neuro: stock feeder II-XII grossly intact. Sensation grossly intact, no focal neurologic deficits. 10.Psych: (AAO) x3. Appropriate mood and affect Course Vital Signs Vital signs: Vital Signs Temperature 36.4 C L 03/18/25 04:33 Pulse 87 03/18/25 04:33 Respiratory Rate 16 03/18/25 04:33 Blood Pressure 133/96 H 03/18/25 04:33 Pulse Oximetry 97 03/18/25 04:33 Temperature 36.4 C L 03/18/25 04:33 Temperature Source Temporal Artery Scan 03/18/25 04:33 Pulse 87 03/18/25 04:33 Respiratory Rate 16 03/18/25 04:33 Blood Pressure 133/96 H 03/18/25 04:33 Blood Pressure Position Sitting 03/18/25 04:33 Pulse Oximetry 97 03/18/25 04:33 Oxygen Delivery Method Room Air 03/18/25 04:33 Oxygen Flow Rate 0 03/18/25 04:33 Pain Level 8 03/18/25 04:39 Medical Decision Making This is a pleasant 44-year-old male with past medical history of 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 Pain began this evening around 1 to 2 AM, and at around 230 he did have an episode of vomiting. He has had cramping throughout the middle of his abdomen. It comes and goes. He did have some small constipated bowel movements earlier this past evening, and did have some flatus at that time as well. He denies any hematemesis. He denies fever or chills. No other complaints at this time. Exam demonstrates well-appearing male, mildly distended lower abdomen, bowel sounds present. No focal tenderness. Differential includes small bowel obstruction, gastroenteritis, or ileus. Will rehydrate, give Zofran for nausea, check lipase for pancreatitis, get CT imaging with oral contrast, monitor closely and reassess. 7:15 AM Laboratory workup is returned, no significant abnormalities, minimal white count, electrolytes normal, lipase normal CT scan with oral contrast was performed and shows no evidence of obstruction or other abnormalities aside for mild bladder wall thickening, but the bladder is incompletely distended. Urinalysis was performed and shows no evidence of UTI. Patient feels notably improved. He has had a bowel movement here, no further vomiting. Patient at this time shows no evidence of obstruction. Symptoms may be secondary to gastric irritation or a viral gastroenteritis. Patient otherwise feels well and stable for discharge. Will give Zofran for home use. Discussed red flags for which to return. I have extensively reviewed the treatment plan and discharge instructions with the patient. I have addressed all patient concerns at this time. The patient was made aware of what symptoms to monitor for that would warrant a return to the emergency department. Discussed the plan with the patient, they demonstrate verbal understanding and agreement with our assessment and plan at this time. The documentation in this chart was dictated using [employer] dictation software. Please excuse any dictation errors. FINDINGS: Liver: Mild hepatomegaly. Gallbladder and biliary ducts: No radiodense gallbladder calculi seen. Pancreas: No CT evidence for acute pancreatitis. Spleen: No splenomegaly. Adrenal glands: No mass. Kidneys and ureters: No hydronephrosis or evidence for pyelonephritis. Stomach and bowel: No intestinal obstruction is evident. Retained fecal material throughout the colon. Correlate clinically for history of constipation. Appendix: No evidence of appendicitis. Intraperitoneal space: No free air. Vasculature: Arterial calcifications. Lymph nodes: Nonspecific mesenteric and retroperitoneal lymph nodes. Urinary bladder: Bladder wall thickening, suboptimally evaluated due to incomplete distension. Reproductive: No acute findings. Bones/joints: No pertinent acute abnormality seen. Soft tissues: No pertinent acute abnormality seen. IMPRESSION: 1. Bladder wall thickening, suboptimally evaluated due to incomplete distension but cystitis should be considered. Cannot exclude muscular hypertrophy or neoplasm. Clinical correlation advised. 2. Additional findings as above. Thank you for allowing us to participate in the care of your patient. Dictated and Authenticated by: Nina Mercado MD 03/18/2025 6:39 AM Eastern Time ([place] & [place]) PFSH All Active Problems (Updated 03/18/25 @ 07:19 by Ian Cabello DO) Nausea & vomiting (Acute) Lateral epicondylitis of right elbow (Acute) Injected by PCP: 11/09/19 Bowel obstruction (Acute) Medical History (Updated 03/18/25 @ 07:19 by Ian Cabello DO) GERD (gastroesophageal reflux disease) Hirschsprung's disease Surgical History H/O exploratory laparotomy History of bowel resection History of appendectomy Social History (Updated 08/18/18 @ 14:34 by Deborah Hunter MD) Smoking/Tobacco Use Status: Current every day Tobacco Type: cigars Smoking risk assessment performed?: Yes Alcohol Intake: current Alcohol Intake frequency: 3 or more drinks per day Drug use: Occasionally Substance use type: marijuana Current gender identity: male Do you feel safe at home: Yes Do you feel safe in your relationship?: Yes
[2025-03-18] MEDS: Ondansetron 4 MG/2 ML VIAL IVP (04:50)
[2025-03-18] MEDS: Lactated Ringers 1,000 ML 1000 ML IV (04:50)
[2025-03-18 04:56] LABS: Abs Immature Grans 0.04 10^3/uL (0.0-0.06); HCT 45.7 % (40.0-50.0); HGB 15.7 g/dL (13.5-17.5); Immature Grans % 0.3 %; MCH 31.0 pg (27.0-33.0); MCHC 34.4 % (32.0-36.0); MCV 90 fL (80-95); MPV 9.6 fL (8.0-11.0); Platelet Count 252 10^3/uL (130-400); RBC 5.07 10^6/uL (4.36-5.78); RDW 12.7 % (11.8-14.1); RDW-SD 41.8 fL; WBC 11.51 10^3/uL (4.4-10.8)
[2025-03-18] MEDS: Omnipaque 350 MG/ML 50 ML BTL PO (05:00)
[2025-03-18] MEDS: Breeza Beverage 473 ML BTL PO ×2 (05:00→05:43)
[2025-03-18 05:10] LABS: ALT 45 U/L (16-63); AST 20 U/L (15-37); Albumin 4.0 g/dL (3.4-5.0); Alkaline Phosphatase 97 U/L (46-116); Anion Gap 11.7 mmol/L (3-11); BUN 13 mg/dL (7-18); Bilirubin, Total 0.3 mg/dL (0.2-1.0); CO2 26.3 mmol/L (21.0-32.0); Calcium 8.8 mg/dL (8.5-10.1); Chloride 102 mmol/L (98-107); Estimated GFR 85.95 (mL/min/1.73m2); Glucose 183 mg/dL (74-106); Lipase 35 U/L (<78); Potassium 4.1 mmol/L (3.5-5.1); Sodium 140 mmol/L (136-145); Total Protein 7.7 g/dL (6.4-8.2)
[2025-03-18 06:14] VITALS: BP 130/88; PULSE 84; RESP 16; O2SAT 97
[2025-03-18] MEDS: Normal Saline Flush 10 ML SYR IVP (06:17)
[2025-03-18] MEDS: Normal Saline - Diluent 50 ML VIAL IJ (06:17)
[2025-03-18] MEDS: Omnipaque 350 MG/ML 100 ML BTL IJ (06:17)
--- NOTE | 2025-03-18 06:40 | DI.VRAD_ITS ---
PROCEDURE INFORMATION: Exam: CT Abdomen And Pelvis With Contrast Exam date and time: 03/18/2025 6:22 AM Age: 44 years old Clinical indication: Constipation and vomiting and other: Distension; Prior surgery; Surgery date: 6+ months; Surgery type: HX of bowel resection/appendectomy as baby due to hirschsprung's disease; Vomiting, distension, suspect sbo TECHNIQUE: Imaging protocol: Computed tomography of the abdomen and pelvis with contrast. Radiation optimization: All CT scans at this facility use at least one of these dose optimization techniques: automated exposure control; mA and/or kV adjustment per patient size (includes targeted exams where dose is matched to clinical indication); or iterative reconstruction. Contrast material: OMNIPAQUE 350; Contrast volume: 100 ml; Contrast route: INTRAVENOUS (IV); Other contrast: Oral, omnipaque 350, 50; COMPARISON: CT ABDOMEN PELVIS W 08/18/2018 10:23 AM FINDINGS: Liver: Mild hepatomegaly. Gallbladder and biliary ducts: No radiodense gallbladder calculi seen. Pancreas: No CT evidence for acute pancreatitis. Spleen: No splenomegaly. Adrenal glands: No mass. Kidneys and ureters: No hydronephrosis or evidence for pyelonephritis. Stomach and bowel: No intestinal obstruction is evident. Retained fecal material throughout the colon. Correlate clinically for history of constipation. Appendix: No evidence of appendicitis. Intraperitoneal space: No free air. Vasculature: Arterial calcifications. Lymph nodes: Nonspecific mesenteric and retroperitoneal lymph nodes. Urinary bladder: Bladder wall thickening, suboptimally evaluated due to incomplete distension. Reproductive: No acute findings. Bones/joints: No pertinent acute abnormality seen. Soft tissues: No pertinent acute abnormality seen. IMPRESSION: 1. Bladder wall thickening, suboptimally evaluated due to incomplete distension but cystitis should be considered. Cannot exclude muscular hypertrophy or neoplasm. Clinical correlation advised. 2. Additional findings as above. Dictated and Authenticated by: Nina Mercado MD. Orderin Destiney Sosa MD
[2025-03-18] MEDS: Normal Saline 1,000 ML 1000 ML IV (06:41)
[2025-03-18 07:07] LABS: Glucose Negative (Negative)
[2025-03-18 07:15] LABS: RBC 0-2 HPF (0-2); WBC 0-2 HPF (0-5)
[2025-03-18 07:16] LABS: C & S Indicated? No
[2025-03-18] MEDS: Ondansetron O.D.T. 4 MG TABEF, 3 TABS/BTL PO (07:27)
[2025-03-18 07:30] VITALS: BP 137/78; PULSE 81; RESP 12; O2SAT 98
== END 2025-03-18 08:00 | disposition home or self-care (01) ==
PROVIDERS: Emergency Provider Student in an Organized Health Care Education/Training Program; PCP Internal Medicine
DX: R11.2 Nausea with vomiting, unspecified (principal); R10.9 Unspecified abdominal pain
CPT/HCPCS: 99284; 99285; 36415; 96374; 80053; 83690; 96361; 74177; 81003; 81015; 85025; J2405; J3490; Q9967